=== PATIENT | female | born 1940 | race Caucasian/White ===

== ENCOUNTER 2019-05-06 10:33 | Observation (INO) ==
[2019-05-06] MEDS ORDERED: ONDANSETRON 4 MG/2 ML VIAL IV PRN (12:14)
[2019-05-06] MEDS ORDERED: ENOXAPARIN 40 MG/0.4 ML SYRINGE SUBCUT SCH (12:30)
[2019-05-06 13:28] LABS: Basophils % 0.2 % (0.0-0.8); Hematocrit 36.7 VOL% (35.7-47.0); Hemoglobin 11.6 GM/DL (12.0-16.0); Immature Granulocytes % 0.6 %; Immature Granulocytes Absolute 0.11 #; Lymphocytes # 1.3 10*3/uL (1.4-4.0); Lymphocytes % 6.9 % (21.3-54.2); Mean Corpuscular HGB Conc 31.6 GM/DL (32-36); Mean Corpuscular Volume 82.5 FL (87-102); Mean Platelet Volume 9.3 FL (9.6-12.0); Monocytes % 6.7 % (1.7-12.7); Neutrophils % 85.6 % (38.7-73.9); Platelet Count 197 T/CUMM (130-400); Red Blood Count 4.45 MC/CUMM (3.8-5.5); Red Cell Distribution Width 15.8 % (9.3-17.3); White Blood Count 19.2 T/CUMM (4-12)
[2019-05-06] MEDS ORDERED: ALBUTEROL/IPRATROPIUM 3 ML NEB RESP TX PRN (13:37)
[2019-05-06 13:56] LABS: Apearance,Urine CLEAR (Clear); Bacteria,Urine Occasional /HPF (Few); Bilirubin,Urine Negative (Negative); Blood, Urine Small mg/dL (Negative); Glucose,Urine (UA) Negative (Negative); Ketones,Urine 5 mg/dL (Negative); Mucus,Urine Occasional /LPF (Occasional); Nitrite,Urine Negative (Negative); Protein,Urine Negative; RBC,Urine 1 /HPF (0-4); Squamous Epithelial Cell,Urine Occasional /HPF (0-10); Urine Color Straw (Yellow); Urine Specific Gravity 1.004 (1.001-1.035); Urine Urobilinogen < 2.0 EU/DL (0.2-1.0); WBC,Urine <1 /HPF (0-6)
[2019-05-06] MEDS ORDERED: cefTRIAXone 1,000 MG in SYRINGE 1 EACH IV SCH (14:00)
[2019-05-06 14:29] LABS: Albumin 3.1 G/DL (3.4-5.0); Bilirubin,Total 0.9 MG/DL (0.2-1.0); Calcium 7.4 MG/DL (8.5-10.1); Osmolality,Calculated 264.4 MOS/KG (273-304); Total Protein 6.9 G/DL (6.4-8.3)
[2019-05-06] MEDS: SODIUM CHLORIDE 0.9% 1,000 ML IV SCH ×2 (15:03→22:32)
[2019-05-06] MEDS: AZITHROMYCIN INJ 500 MG in SODIUM CHLORIDE 0.9% 250 ML IV SCH (15:04)
[2019-05-06] MEDS ORDERED: NEBIVOLOL 5 MG TABLET PO SCH (21:00)
[2019-05-07] MEDS: SODIUM CHLORIDE 0.9% 1,000 ML IV SCH ×2 (02:50→12:49)
[2019-05-07 06:01] LABS: Basophils % 0.2 % (0.0-0.8); Eosinophils % 0.3 % (0.00-10.9); Hematocrit 34.4 VOL% (35.7-47.0); Hemoglobin 10.8 GM/DL (12.0-16.0); Immature Granulocytes % 1.3 %; Immature Granulocytes Absolute 0.14 #; Lymphocytes # 1.6 10*3/uL (1.4-4.0); Lymphocytes % 14.6 % (21.3-54.2); Mean Corpuscular HGB Conc 31.4 GM/DL (32-36); Mean Corpuscular Volume 82.9 FL (87-102); Mean Platelet Volume 9.7 FL (9.6-12.0); Monocytes % 8.1 % (1.7-12.7); Neutrophils % 75.5 % (38.7-73.9); Platelet Count 184 T/CUMM (130-400); Red Blood Count 4.15 MC/CUMM (3.8-5.5); Red Cell Distribution Width 15.9 % (9.3-17.3)
[2019-05-07 06:16] LABS: Albumin 2.7 G/DL (3.4-5.0); Calcium 7.4 MG/DL (8.5-10.1); Total Protein 6.2 G/DL (6.4-8.3)
[2019-05-07] MEDS ORDERED: FERROUS SULFATE 325 MG TABLET PO SCH (09:00)
[2019-05-07] MEDS ORDERED: TIMOLOL 0.5% OPH SOLN 5 ML BOTTLE BOTH EYES SCH (09:00)
[2019-05-07] MEDS ORDERED: ASPIRIN EC 81 MG TABLET PO SCH (09:00)
[2019-05-07] MEDS ORDERED: PANTOPRAZOLE 40 MG TABLET PO SCH (09:00)
[2019-05-07] MEDS ORDERED: cefTRIAXone 1,000 MG VIAL IV SCH (14:00)
[2019-05-07] MEDS: AZITHROMYCIN INJ 500 MG in SODIUM CHLORIDE 0.9% 250 ML IV SCH (14:58)
[2019-05-07 16:02] VITALS: BP 124/62
[2019-05-08] MEDS ORDERED: AZITHROMYCIN 250 MG TABLET PO SCH (09:00)
== END 2019-05-07 16:35 | disposition home health service (06) ==
LOC: N.2W → SUATTDRO 10:54
PROVIDERS: ADMIT Internal Medicine; ATTEND Internal Medicine

== ENCOUNTER 2022-05-16 02:15 | Inpatient (IN) ==
[2022-05-16] MEDS ORDERED: methylPREDNISolone SOD SUC 125 MG/2 ML VIAL IV STA (02:47)
[2022-05-16] MEDS ORDERED: ALBUTEROL/IPRATROPIUM 3 ML NEB RESP TX STA (02:47)
[2022-05-16] MEDS ORDERED: ONDANSETRON 4 MG/2 ML VIAL IV STA (02:47)
[2022-05-16] MEDS ORDERED: SODIUM CHLORIDE 0.9% 500 ML IV STA (02:47)
[2022-05-16 02:52] LABS: Basophils # 0.1 10*3/uL (0.0-0.2); Basophils % 0.3 % (0.0-0.8); Eosinophils # 0.2 10*3/uL (0.0-0.87); Eosinophils % 0.9 % (0.00-10.9); Hematocrit 35.7 VOL% (35.7-47.0); Hemoglobin 11.7 GM/DL (12.0-16.0); Immature Granulocytes % 0.7 %; Immature Granulocytes Absolute 0.13 #; Mean Corpuscular HGB Conc 32.8 GM/DL (32-36); Mean Platelet Volume 8.4 FL (9.6-12.0); Monocytes # 1.7 10*3/uL (0.11-0.8); Monocytes % 9.3 % (1.7-12.7); Neutrophils % 77.8 % (38.7-73.9); Platelet Count 393 T/CUMM (130-400); Red Blood Count 4.01 MC/CUMM (3.8-5.5); Red Cell Distribution Width 13.7 % (9.3-17.3); White Blood Count 18.2 T/CUMM (4-12)
[2022-05-16 03:02] LABS: PT Patient Result 11.4 SECS (10.1-12.1); Partial Thromboplastin Time 29.9 SECS (23.7-32.9)
[2022-05-16 03:02] LABS: Albumin 2.6 G/DL (3.4-5.0); Bilirubin,Total 0.6 MG/DL (0.20-1.00); Calcium 8.3 MG/DL (8.5-10.1); Osmolality,Calculated 269.1 MOS/KG (273-304); Potassium 3.6 MMOL/L (3.5-5.1); Total Protein 6.2 G/DL (6.4-8.2)
[2022-05-16 03:03] LABS: PT Patient Result 11.3 SECS (10.1-12.1)
[2022-05-16] MEDS ORDERED: PIPERACILLIN/TAZOBACTAM 3,375 MG in SODIUM CHLORIDE 0.9% 100 ML IV STA (04:20)
[2022-05-16] MEDS ORDERED: ONDANSETRON 4 MG/2 ML VIAL IV PRN (04:44)
[2022-05-16] MEDS ORDERED: ALBUTEROL 2.5 MG/3 ML NEB RESP TX PRN (04:44)
[2022-05-16] MEDS ORDERED: ACETAMINOPHEN 325 MG TABLET PO PRN (04:44)
[2022-05-16] MEDS ORDERED: ALUMINUM/MAGNES/SIMETH MAX STR 30 ML UDCUP PO PRN (04:44)
[2022-05-16] MEDS: ALBUTEROL 2.5 MG/3 ML NEB RESP TX SCH ×3 (07:03→20:13)
[2022-05-16] MEDS: MULTIVITAMIN (CENTRUM) TABLET PO SCH (09:31)
[2022-05-16] MEDS: ESCITALOPRAM 10 MG TABLET PO SCH (09:31)
[2022-05-16] MEDS: DOCUSATE SODIUM 100 MG CAPSULE PO SCH ×2 (09:31→21:05)
[2022-05-16] MEDS: PANTOPRAZOLE 40 MG TABLET PO SCH (09:31)
[2022-05-16] MEDS: FERROUS SULFATE 325 MG TABLET PO SCH (09:31)
[2022-05-16] MEDS: cefTRIAXone 1,000 MG in SODIUM CHLORIDE 0.9% 100 ML IV SCH (09:34)
[2022-05-16 09:38] LABS: Basophils % 0.1 % (0.0-0.8); Immature Granulocytes % 0.7 %; Immature Granulocytes Absolute 0.14 #; Lymphocytes # 0.6 10*3/uL (1.4-4.0); Lymphocytes % 2.9 % (21.3-54.2); Mean Corpuscular HGB Conc 32.4 GM/DL (32-36); Mean Platelet Volume 8.6 FL (9.6-12.0); Monocytes # 0.2 10*3/uL (0.11-0.8); Monocytes % 0.8 % (1.7-12.7); Neutrophils % 95.5 % (38.7-73.9); Platelet Count 336 T/CUMM (130-400); Red Blood Count 3.82 MC/CUMM (3.8-5.5); Red Cell Distribution Width 13.7 % (9.3-17.3); White Blood Count 19.2 T/CUMM (4-12)
[2022-05-16 09:56] LABS: Hypochromia Slight; Lymphocytes 3 % (20-55); Microcytosis Slight; Platelet Estimate Adequate; Total Cells Counted 100
[2022-05-16] MEDS: AZITHROMYCIN INJ 500 MG in SODIUM CHLORIDE 0.9% 250 ML IV SCH (10:13)
[2022-05-17] MEDS: ALBUTEROL 2.5 MG/3 ML NEB RESP TX SCH ×4 (01:00→19:43)
[2022-05-17 05:47] LABS: Basophils % 0.1 % (0.0-0.8); Eosinophils % 0.1 % (0.00-10.9); Hematocrit 32.1 VOL% (35.7-47.0); Hemoglobin 10.3 GM/DL (12.0-16.0); Immature Granulocytes % 0.7 %; Immature Granulocytes Absolute 0.14 #; Lymphocytes # 1.8 10*3/uL (1.4-4.0); Lymphocytes % 8.7 % (21.3-54.2); Mean Corpuscular HGB Conc 32.1 GM/DL (32-36); Mean Corpuscular Volume 89.4 FL (87-102); Mean Platelet Volume 8.6 FL (9.6-12.0); Monocytes # 1.2 10*3/uL (0.11-0.8); Monocytes % 5.5 % (1.7-12.7); Neutrophils % 84.9 % (38.7-73.9); Platelet Count 360 T/CUMM (130-400); Red Blood Count 3.59 MC/CUMM (3.8-5.5); Red Cell Distribution Width 13.7 % (9.3-17.3); White Blood Count 21.1 T/CUMM (4-12)
[2022-05-17 06:00] LABS: Calcium 8.4 MG/DL (8.5-10.1); Osmolality,Calculated 281.3 MOS/KG (273-304); Potassium 3.2 MMOL/L (3.5-5.1)
[2022-05-17 06:22] LABS: Eosinophils 2 % (0-10); Lymphocytes 4 % (20-55); Platelet Estimate Normal; Total Cells Counted 100
[2022-05-17] MEDS ORDERED: PROMETHAZINE 25 MG/1 ML VIAL IM ONE (07:30)
[2022-05-17] MEDS ORDERED: MEPERIDINE 50 MG/1 ML VIAL IM ONE (07:30)
[2022-05-17] MEDS ORDERED: LIDOCAINE 1% 20 ML VIAL MISC INJ ONE (08:00)
[2022-05-17] MEDS ORDERED: MIDAZOLAM 2 MG/2 ML VIAL IV ONE (08:00)
[2022-05-17] MEDS ORDERED: LIDOCAINE 2% VISCOUS 100 ML BOTTLE SWISH/SPIT ONE (08:00)
[2022-05-17] MEDS ORDERED: LIDOCAINE 2% 20 ML VIAL RESP TX ONE (08:00)
[2022-05-17] MEDS: cefTRIAXone 1,000 MG in SODIUM CHLORIDE 0.9% 100 ML IV SCH (10:38)
[2022-05-17] MEDS: AZITHROMYCIN INJ 500 MG in SODIUM CHLORIDE 0.9% 250 ML IV SCH (11:35)
[2022-05-17] MEDS: ESCITALOPRAM 10 MG TABLET PO SCH (13:31)
[2022-05-17] MEDS: APIXABAN 5 MG TABLET PO SCH ×2 (13:32→20:41)
[2022-05-17] MEDS: DOCUSATE SODIUM 100 MG CAPSULE PO SCH ×2 (13:32→20:41)
[2022-05-17] MEDS: PANTOPRAZOLE 40 MG TABLET PO SCH (13:33)
[2022-05-17] MEDS: MULTIVITAMIN (CENTRUM) TABLET PO SCH (13:33)
[2022-05-17] MEDS ORDERED: APIXABAN 5 MG TABLET PO SCH (21:00)
[2022-05-18] MEDS: ALBUTEROL 2.5 MG/3 ML NEB RESP TX SCH ×4 (00:45→19:10)
[2022-05-18 05:47] LABS: Basophils % 0.1 % (0.0-0.8); Eosinophils # 0.3 10*3/uL (0.0-0.87); Eosinophils % 2.3 % (0.00-10.9); Hematocrit 29.4 VOL% (35.7-47.0); Hemoglobin 9.3 GM/DL (12.0-16.0); Immature Granulocytes % 0.5 %; Immature Granulocytes Absolute 0.07 #; Lymphocytes # 1.8 10*3/uL (1.4-4.0); Lymphocytes % 11.8 % (21.3-54.2); Mean Corpuscular HGB Conc 31.6 GM/DL (32-36); Mean Corpuscular Volume 90.5 FL (87-102); Mean Platelet Volume 8.5 FL (9.6-12.0); Monocytes # 1.1 10*3/uL (0.11-0.8); Monocytes % 7.6 % (1.7-12.7); Neutrophils % 77.7 % (38.7-73.9); Platelet Count 342 T/CUMM (130-400); Red Blood Count 3.25 MC/CUMM (3.8-5.5); Red Cell Distribution Width 13.9 % (9.3-17.3); White Blood Count 15.1 T/CUMM (4-12)
[2022-05-18 06:16] LABS: Calcium 8.3 MG/DL (8.5-10.1); Osmolality,Calculated 277.5 MOS/KG (273-304); Potassium 3.5 MMOL/L (3.5-5.1)
[2022-05-18] MEDS: cefTRIAXone 1,000 MG in SODIUM CHLORIDE 0.9% 100 ML IV SCH (09:23)
[2022-05-18] MEDS: DOCUSATE SODIUM 100 MG CAPSULE PO SCH ×2 (09:24→22:04)
[2022-05-18] MEDS: ESCITALOPRAM 10 MG TABLET PO SCH (09:24)
[2022-05-18] MEDS: APIXABAN 5 MG TABLET PO SCH ×2 (09:25→22:00)
[2022-05-18] MEDS: FERROUS SULFATE 325 MG TABLET PO SCH (09:25)
[2022-05-18] MEDS: PANTOPRAZOLE 40 MG TABLET PO SCH (09:25)
[2022-05-18] MEDS: MULTIVITAMIN (CENTRUM) TABLET PO SCH (09:34)
[2022-05-18] MEDS: AZITHROMYCIN INJ 500 MG in SODIUM CHLORIDE 0.9% 250 ML IV SCH (10:27)
[2022-05-18 19:01] LABS: M. Tuberculosis PCR Result Negative (Negative); M. Tuberculosis PCR Source SPUTUM
[2022-05-19] MEDS: ALBUTEROL 2.5 MG/3 ML NEB RESP TX SCH ×3 (00:13→19:55)
[2022-05-19] MEDS: DOCUSATE SODIUM 100 MG CAPSULE PO SCH ×2 (08:09→20:59)
[2022-05-19] MEDS: APIXABAN 5 MG TABLET PO SCH ×2 (08:09→20:58)
[2022-05-19] MEDS: PANTOPRAZOLE 40 MG TABLET PO SCH (08:09)
[2022-05-19] MEDS: ESCITALOPRAM 10 MG TABLET PO SCH (08:09)
[2022-05-19] MEDS: MULTIVITAMIN (CENTRUM) TABLET PO SCH (08:09)
[2022-05-19 09:09] LABS: Basophils % 0.4 % (0.0-0.8); Eosinophils # 0.4 10*3/uL (0.0-0.87); Eosinophils % 3.8 % (0.00-10.9); Hematocrit 30.2 VOL% (35.7-47.0); Hemoglobin 9.5 GM/DL (12.0-16.0); Immature Granulocytes % 0.5 %; Immature Granulocytes Absolute 0.05 #; Lymphocytes # 1.7 10*3/uL (1.4-4.0); Lymphocytes % 15.1 % (21.3-54.2); Mean Corpuscular HGB Conc 31.5 GM/DL (32-36); Mean Platelet Volume 8.3 FL (9.6-12.0); Monocytes # 0.8 10*3/uL (0.11-0.8); Monocytes % 7.2 % (1.7-12.7); Platelet Count 396 T/CUMM (130-400); Red Blood Count 3.32 MC/CUMM (3.8-5.5); Red Cell Distribution Width 13.8 % (9.3-17.3)
[2022-05-19 09:35] LABS: Calcium 8.2 MG/DL (8.5-10.1); Osmolality,Calculated 280.3 MOS/KG (273-304); Potassium 3.8 MMOL/L (3.5-5.1)
[2022-05-19] MEDS: cefTRIAXone 1,000 MG in SODIUM CHLORIDE 0.9% 100 ML IV SCH (09:50)
[2022-05-19] MEDS: AZITHROMYCIN INJ 500 MG in SODIUM CHLORIDE 0.9% 250 ML IV SCH (10:29)
[2022-05-19 11:57] LABS: % Iron Saturation 12.1 % (18-50)
[2022-05-19] MEDS ORDERED: FERRIC GLUCONATE COMPLEX 125 MG in SODIUM CHLORIDE 0.9% 100 ML IV SCH (13:30)
[2022-05-19] MEDS ORDERED: FERRIC GLUCONATE COMPLEX 125 MG in SODIUM CHLORIDE 0.9% 100 ML IV ONE (16:52)
[2022-05-20] MEDS: ALBUTEROL 2.5 MG/3 ML NEB RESP TX SCH ×5 (00:40→19:36)
[2022-05-20 05:19] LABS: Basophils # 0.1 10*3/uL (0.0-0.2); Basophils % 0.6 % (0.0-0.8); Eosinophils # 0.5 10*3/uL (0.0-0.87); Eosinophils % 4.6 % (0.00-10.9); Hematocrit 30.6 VOL% (35.7-47.0); Hemoglobin 9.7 GM/DL (12.0-16.0); Immature Granulocytes % 0.8 %; Immature Granulocytes Absolute 0.09 #; Lymphocytes # 1.9 10*3/uL (1.4-4.0); Lymphocytes % 17.8 % (21.3-54.2); Mean Corpuscular HGB Conc 31.7 GM/DL (32-36); Mean Corpuscular Volume 89.7 FL (87-102); Mean Platelet Volume 8.5 FL (9.6-12.0); Monocytes # 0.8 10*3/uL (0.11-0.8); Monocytes % 7.5 % (1.7-12.7); Neutrophils % 68.7 % (38.7-73.9); Platelet Count 394 T/CUMM (130-400); Red Blood Count 3.41 MC/CUMM (3.8-5.5); Red Cell Distribution Width 13.8 % (9.3-17.3); White Blood Count 10.8 T/CUMM (4-12)
[2022-05-20 05:48] LABS: Calcium 8.4 MG/DL (8.5-10.1); Osmolality,Calculated 278.4 MOS/KG (273-304); Potassium 3.6 MMOL/L (3.5-5.1)
[2022-05-20] MEDS: DOCUSATE SODIUM 100 MG CAPSULE PO SCH ×2 (10:20→20:25)
[2022-05-20] MEDS: FERROUS SULFATE 325 MG TABLET PO SCH (10:21)
[2022-05-20] MEDS: MULTIVITAMIN (CENTRUM) TABLET PO SCH (10:21)
[2022-05-20] MEDS: PANTOPRAZOLE 40 MG TABLET PO SCH (10:22)
[2022-05-20] MEDS: APIXABAN 5 MG TABLET PO SCH ×2 (10:22→20:25)
[2022-05-20] MEDS: cefTRIAXone 1,000 MG in SODIUM CHLORIDE 0.9% 100 ML IV SCH (10:23)
[2022-05-20] MEDS: ESCITALOPRAM 10 MG TABLET PO SCH (10:23)
[2022-05-20] MEDS: AZITHROMYCIN INJ 500 MG in SODIUM CHLORIDE 0.9% 250 ML IV SCH (11:32)
[2022-05-20] MEDS ORDERED: TUBERCULIN SKIN TEST 0.1 ML SYRINGE INTRADERM ONE (15:00)
[2022-05-21] MEDS: ALBUTEROL 2.5 MG/3 ML NEB RESP TX SCH ×4 (02:11→20:29)
[2022-05-21 05:02] LABS: Basophils # 0.1 10*3/uL (0.0-0.2); Basophils % 0.5 % (0.0-0.8); Eosinophils # 0.5 10*3/uL (0.0-0.87); Eosinophils % 5.3 % (0.00-10.9); Hematocrit 30.3 VOL% (35.7-47.0); Hemoglobin 9.5 GM/DL (12.0-16.0); Immature Granulocytes % 1.1 %; Lymphocytes # 1.9 10*3/uL (1.4-4.0); Lymphocytes % 19.8 % (21.3-54.2); Mean Corpuscular HGB Conc 31.4 GM/DL (32-36); Mean Corpuscular Volume 90.2 FL (87-102); Mean Platelet Volume 8.4 FL (9.6-12.0); Monocytes # 0.9 10*3/uL (0.11-0.8); Monocytes % 9.2 % (1.7-12.7); Neutrophils % 64.1 % (38.7-73.9); Platelet Count 408 T/CUMM (130-400); Red Blood Count 3.36 MC/CUMM (3.8-5.5); Red Cell Distribution Width 13.8 % (9.3-17.3); White Blood Count 9.4 T/CUMM (4-12)
[2022-05-21 05:40] LABS: Calcium 8.4 MG/DL (8.5-10.1); Osmolality,Calculated 277.4 MOS/KG (273-304); Potassium 3.9 MMOL/L (3.5-5.1)
[2022-05-21] MEDS: ESCITALOPRAM 10 MG TABLET PO SCH (08:43)
[2022-05-21] MEDS: MULTIVITAMIN (CENTRUM) TABLET PO SCH (08:43)
[2022-05-21] MEDS: DOCUSATE SODIUM 100 MG CAPSULE PO SCH ×2 (08:43→21:06)
[2022-05-21] MEDS: PANTOPRAZOLE 40 MG TABLET PO SCH (08:44)
[2022-05-21] MEDS: APIXABAN 5 MG TABLET PO SCH ×2 (08:44→21:06)
[2022-05-21] MEDS: cefTRIAXone 1,000 MG in SODIUM CHLORIDE 0.9% 100 ML IV SCH (10:27)
[2022-05-22] MEDS: ALBUTEROL 2.5 MG/3 ML NEB RESP TX SCH ×2 (02:44→07:15)
[2022-05-22 05:02] LABS: Basophils % 0.5 % (0.0-0.8); Eosinophils # 0.5 10*3/uL (0.0-0.87); Eosinophils % 5.5 % (0.00-10.9); Hematocrit 29.8 VOL% (35.7-47.0); Hemoglobin 9.2 GM/DL (12.0-16.0); Immature Granulocytes % 1.1 %; Immature Granulocytes Absolute 0.09 #; Lymphocytes # 1.9 10*3/uL (1.4-4.0); Lymphocytes % 22.6 % (21.3-54.2); Mean Corpuscular HGB Conc 30.9 GM/DL (32-36); Mean Corpuscular Volume 92.3 FL (87-102); Mean Platelet Volume 8.3 FL (9.6-12.0); Monocytes # 0.8 10*3/uL (0.11-0.8); Monocytes % 9.3 % (1.7-12.7); Platelet Count 428 T/CUMM (130-400); Red Blood Count 3.23 MC/CUMM (3.8-5.5); Red Cell Distribution Width 14.1 % (9.3-17.3); White Blood Count 8.5 T/CUMM (4-12)
[2022-05-22 05:21] LABS: Calcium 8.2 MG/DL (8.5-10.1); Osmolality,Calculated 280.3 MOS/KG (273-304); Potassium 3.9 MMOL/L (3.5-5.1)
[2022-05-22] MEDS: cefTRIAXone 1,000 MG in SODIUM CHLORIDE 0.9% 100 ML IV SCH (09:42)
[2022-05-22] MEDS: ESCITALOPRAM 10 MG TABLET PO SCH (09:43)
[2022-05-22] MEDS: PANTOPRAZOLE 40 MG TABLET PO SCH (09:43)
[2022-05-22] MEDS: MULTIVITAMIN (CENTRUM) TABLET PO SCH (09:43)
[2022-05-22] MEDS: DOCUSATE SODIUM 100 MG CAPSULE PO SCH (09:43)
[2022-05-22] MEDS: APIXABAN 5 MG TABLET PO SCH (09:43)
[2022-05-22] MEDS: FERROUS SULFATE 325 MG TABLET PO SCH (09:43)
[2022-05-22 12:25] VITALS: BP 102/52
[2022-05-24] MEDS ORDERED: APIXABAN 5 MG TABLET PO SCH (09:00)
== END 2022-05-22 13:31 | DRG 194 ==
LOC: N.ED 02:15 → N.EDINP 02:15 → SUATTDRO 04:44 → N.5E 07:23
PROVIDERS: ADMIT Internal Medicine; ATTEND Internal Medicine